=== PATIENT | male | born 1995 | race African-American/Black ===

== ENCOUNTER 2018-01-03 13:17 | Emergency (ER) | payer BC, SELFPAY ==
[2018-01-03] MEDS ORDERED: Ondansetron ODT 4 MG TAB ONE (13:36)
[2018-01-03 14:07] LABS: ALT (SGPT) 28 U/L (8-55); AST (SGOT) 27 U/L (5-34); Albumin 4.5 g/dL (3.5-5.0); Alkaline Phosphatase 67 U/L (40-150); Anion Gap 15 mmol/L (10-20); BUN (Urea Nitrogen) 9 mg/dL (8.9-20.6); Bilirubin, Total 0.5 mg/dL (0.2-1.2); Calc. Creatinine Clearance 0 mL/min (70-130); Calcium 9.5 mg/dL (7.8-10.44); Carbon Dioxide 24 mmol/L (22-29); Chloride 100 mmol/L (98-107); Estimated GFR-MDRD Greater than 90; Globulin 3.3 g/dL (2.4-3.5); Glucose 108 mg/dL (70-105); Potassium 3.7 mmol/L (3.5-5.1); Protein, Total 7.8 g/dL (6.0-8.3); Sodium 135 mmol/L (136-145)
== END 2018-01-03 15:13 | disposition home or self-care (01) ==
LOC: NAV ERS 13:17
DX: R11.2 Nausea with vomiting, unspecified (principal)
CPT/HCPCS: 80053; 99284; Q0162

== ENCOUNTER 2018-02-25 22:16 | Emergency (ER) | payer SELFPAY ==
[2018-02-25] MEDS ORDERED: Ondansetron PF 4 MG/2 ML Vial ONE (22:33)
[2018-02-25] MEDS ORDERED: Lorazepam 2 MG/ML VIAL ONE (22:33)
--- NOTE | 2018-02-25 23:42 | RAD ---
PA AND LATERAL CHEST X-RAY: 02/25/2018 HISTORY: Dyspnea. FINDINGS: The cardiac silhouette and pulmonary vasculature are within normal limits. The lungs are clear. The osseous structures are intact. IMPRESSION: No acute cardiopulmonary process. POS: [id number]
== END 2018-02-25 23:58 | disposition home or self-care (01) ==
LOC: NAV ERS 22:16
DX: F41.9 Anxiety disorder, unspecified (principal); Z79.899 Other long term (current) drug therapy
CPT/HCPCS: 71046; 93005; 96374; 96375; J2060; J2405

== ENCOUNTER 2018-02-26 16:30 | Emergency (ER) | payer SELFPAY ==
[2018-02-26 17:21] LABS: #Basophils 0.1 thou/uL (0.0-0.2); #Eosinphils 0.2 thou/uL (0.0-0.7); #Lymphocytes 1.7 thou/uL (1.20-3.40); #Monocytes 0.5 thou/uL (0.11-0.59); %Basophils 1.5 % (0.0-1.0); %Eosinophils 2.8 % (0.0-10.0); %Lymphocytes 26.2 % (21.0-51.0); %Monocytes 7.3 % (0.0-10.0); %Neutrophils 62.3 % (42.0-75.0); Hemoglobin 15.3 g/dL (14.0-18.0); Mean Corpuscular HGB CONC 32.3 g/dL (32.0-36.0); Mean Corpuscular Hemoglobin 28.3 pg (27.0-31.0); Mean Corpuscular Volume 87.5 fL (78.0-98.0); Mean Platelet Volume 6.3 fL (7.4-10.4); Platelet Count 329 thou/uL (130-400); RBC Distribution Width 11.6 % (11.5-14.5); Red Blood Cell (RBC) Count 5.39 mill/uL (4.70-6.10); White Blood Cell (WBC) Count 6.4 thou/uL (4.8-10.8)
[2018-02-26] MEDS ORDERED: Lidocaine Viscous Sol 2% 15 ml UD Cup ONE (17:21)
[2018-02-26] MEDS ORDERED: Mag-Al Plus 1200 MG/1200 MG/120 MG/30 ML UDCUP ONE (17:21)
[2018-02-26] MEDS ORDERED: Pantoprazole 40 MG VIAL ONE (17:26)
[2018-02-26 17:27] LABS: INR-International Normal Ratio 1.1; Prothrombin Time 14.6 SEC (12.0-14.7)
[2018-02-26 17:36] LABS: ALT (SGPT) 20 U/L (8-55); AST (SGOT) 16 U/L (5-34); Albumin 4.1 g/dL (3.5-5.0); Alkaline Phosphatase 60 U/L (40-150); Anion Gap 12 mmol/L (10-20); BUN (Urea Nitrogen) 8 mg/dL (8.9-20.6); Bilirubin, Total 0.7 mg/dL (0.2-1.2); Calc. Creatinine Clearance 0 mL/min (70-130); Calcium 9.9 mg/dL (7.8-10.44); Carbon Dioxide 29 mmol/L (22-29); Chloride 101 mmol/L (98-107); Estimated GFR-MDRD Greater than 90; Globulin 3.1 g/dL (2.4-3.5); Glucose 108 mg/dL (70-105); Protein, Total 7.2 g/dL (6.0-8.3); Sodium 138 mmol/L (136-145)
[2018-02-26] MEDS ORDERED: Morphine 4 MG/ML VIAL ONE (17:40)
== END 2018-02-26 18:13 | disposition home or self-care (01) ==
LOC: NAV ERS 16:30
DX: K92.0 Hematemesis (principal); F41.9 Anxiety disorder, unspecified; Z79.899 Other long term (current) drug therapy
CPT/HCPCS: 80053; 85025; 85610; 96374; 96375; C9113; J2270

== ENCOUNTER 2021-08-08 18:08 | Emergency (ER) | payer SELFPAY ==
[2021-08-08] MEDS ORDERED: Sodium Chloride 0.9% 1,000 ML ONE (18:32)
[2021-08-08] MEDS ORDERED: Acetaminophen 500 MG TAB ONE (18:32)
[2021-08-08] MEDS ORDERED: Ondansetron PF 4 MG/2 ML Vial ONE (18:32)
[2021-08-08] MEDS ORDERED: Ketorolac Tromethamine 30 MG/ML VIAL ONE (18:32)
[2021-08-08 18:43] LABS: #Lymphocytes 1.5 thou/uL (1.20-3.40); #Monocytes 0.5 thou/uL (0.11-0.59); #Neutrophils 3.9 thou/uL (1.40-6.50); %Basophils 0.8 % (0.0-1.0); %Lymphocytes 25.7 % (21.0-51.0); %Monocytes 7.6 % (0.0-10.0); %Neutrophils 65.9 % (42.0-75.0); Hemoglobin 14.3 g/dL (14.0-18.0); Mean Corpuscular HGB CONC 31.5 g/dL (32.0-36.0); Mean Corpuscular Hemoglobin 28.6 pg (27.0-31.0); Mean Corpuscular Volume 90.6 fL (78.0-98.0); Mean Platelet Volume 6.6 fL (7.4-10.4); Platelet Count 190 thou/uL (130-400); RBC Distribution Width 12.3 % (11.5-14.5)
[2021-08-08 19:08] LABS: ALT (SGPT) 25 U/L (8-55); AST (SGOT) 32 U/L (5-34); Albumin 3.8 g/dL (3.5-5.0); Alkaline Phosphatase 51 U/L (40-110); Anion Gap 16 mmol/L (10-20); BUN (Urea Nitrogen) 7 mg/dL (8.9-20.6); Bilirubin, Total 0.4 mg/dL (0.2-1.2); Calc. Creatinine Clearance 0 mL/min (70-130); Calcium 8.4 mg/dL (7.8-10.44); Carbon Dioxide 24 mmol/L (22-29); Chloride 101 mmol/L (98-107); Estimated GFR 78; Globulin 2.7 g/dL (2.4-3.5); Glucose 111 mg/dL (70-105); Potassium 3.4 mmol/L (3.5-5.1); Protein, Total 6.5 g/dL (6.0-8.3); Sodium 138 mmol/L (136-145)
== END 2021-08-08 19:43 | disposition home or self-care (01) ==
LOC: NAV ERS 18:08
DX: U07.1 COVID-19 (principal); J11.1 Influenza due to unidentified influenza virus with other respiratory manifestations
CPT/HCPCS: 80053; 85025; 96374; 96375; J1885; J2405; J7050